=== PATIENT | female | born 1940 | race Caucasian/White ===

== ENCOUNTER → 2017-03-03 | Outpatient (CLI) | payer MEDICARE ==
[2017-03-03 13:20] LABS: ALT (GPT) 22 U/L (10-53); ANION GAP 7 MEQ/L (5-15); BICARBONATE 26.5 MEQ/L (21.0-32.0); BLOOD UREA NITROGEN 27 MG/DL (7-18); CHLORIDE 108 MEQ/L (98-107); GLOMERULAR FILTRATION RATE 42 ML/MIN (>89); GLUCOSE,FASTING 104 MG/DL (74-99); POTASSIUM 4.3 MEQ/L (3.5-5.1); SODIUM (NA) 141 MEQ/L (136-145)
[2017-03-03 13:23] LABS: HDL CHOLESTEROL 44.9 MG/DL (40.0-60.0); LDL CHOLESTEROL 137 MG/DL (0-99)
[2017-03-03 17:52] LABS: HEMOGLOBIN A1a 1.1 %; HEMOGLOBIN A1b 0.9 %; HEMOGLOBIN Ao 84.7 %; HEMOGLOBIN P3 5.3 %
== END ==
LOC: OLAB 08:03
PROVIDERS: ATTEND Family Medicine
DX: E78.00 Pure hypercholesterolemia, unspecified (principal); I10 Essential (primary) hypertension; R73.09 Other abnormal glucose
CPT/HCPCS: 36415; 80048; 80061; 83036; 84460

== ENCOUNTER → 2017-10-02 | Outpatient (CLI) | payer MEDICARE ==
[2017-10-02 13:14] LABS: ANION GAP 7 MEQ/L (5-15); BICARBONATE 25.6 MEQ/L (21.0-32.0); BLOOD UREA NITROGEN 23 MG/DL (7-18); CHLORIDE 108 MEQ/L (98-107); GLOMERULAR FILTRATION RATE 45 ML/MIN (>89); GLUCOSE,FASTING 106 MG/DL (74-99); SODIUM (NA) 141 MEQ/L (136-145)
[2017-10-02 13:16] LABS: ALT (GPT) 17 U/L (10-53); LDL CHOLESTEROL 74 MG/DL (0-99)
[2017-10-02 14:33] LABS: HEMOGLOBIN A1a 0.9 %; HEMOGLOBIN A1b 0.8 %; HEMOGLOBIN Ao 85.3 %; HEMOGLOBIN F 1.1 %; HEMOGLOBIN P3 3.8 %
== END ==
LOC: OLAB 07:52
PROVIDERS: ATTEND Family Medicine
DX: I10 Essential (primary) hypertension (principal); R73.09 Other abnormal glucose; E78.00 Pure hypercholesterolemia, unspecified
CPT/HCPCS: 36415; 80048; 80061; 83036; 84460

== ENCOUNTER → 2018-01-28 | Outpatient (CLI) | payer MEDICARE ==
[2018-01-28 10:36] LABS: ALT (GPT) 20 U/L (10-53); BICARBONATE 27.6 MEQ/L (21.0-32.0); BLOOD UREA NITROGEN 21 MG/DL (7-18); CALCIUM 8.7 MG/DL (8.5-10.1); CHLORIDE 110 MEQ/L (98-107); CHOLESTEROL 171 MG/DL (120-200); CREATININE 1.19 MG/DL (0.50-1.00); GLOMERULAR FILTRATION RATE 44 ML/MIN (>89); GLUCOSE,FASTING 92 MG/DL (74-99); SODIUM (NA) 143 MEQ/L (136-145); TRIGLYCERIDES 156 MG/DL (42-150)
[2018-01-28 10:38] LABS: CHOLESTEROL/ HDL RATIO 4.02 RATIO; HDL CHOLESTEROL 42.5 MG/DL (40.0-60.0); LDL CHOLESTEROL 97 MG/DL (0-99)
[2018-01-28 17:11] LABS: HEMOGLOBIN A1C 6.1 % (4.3-6.0)
== END ==
LOC: OLAB 08:09
PROVIDERS: ATTEND Family Medicine
DX: I10 Essential (primary) hypertension (principal); R73.09 Other abnormal glucose; E78.00 Pure hypercholesterolemia, unspecified
CPT/HCPCS: 36415; 80048; 80061; 83036; 84460

== ENCOUNTER → 2018-03-18 | Outpatient (CLI) | payer MEDICARE ==
[2018-03-18 10:35] LABS: CALCIUM 9.1 MG/DL (8.5-10.1); PHOSPHORUS 3.8 MG/DL (2.5-4.9)
== END ==
LOC: OLAB 08:08
PROVIDERS: ATTEND Orthopaedic Surgery Sports Medicine
DX: M81.8 Other osteoporosis without current pathological fracture (principal); M85.9 Disorder of bone density and structure, unspecified; M81.0 Age-related osteoporosis without current pathological fracture; E55.9 Vitamin D deficiency, unspecified
CPT/HCPCS: 36415; 82306; 82310; 84100